=== PATIENT | male | born 1990 | race Caucasian/White ===

== ENCOUNTER 2022-02-07 09:15 | Emergency (ER) | payer SELFPAY ==
[~2022-02-07] VITALS: Ht 177.8 cm; Wt 81.6 kg
--- NOTE | 2022-02-07 09:24 | NUR ---
Dr Strickland at the bedside for MSE.
--- NOTE | 2022-02-07 09:32 | NUR ---
Pt states he wants to talk to health care social worker. Placed a call to Rose, our flat screen worker, ETA 15 min.
[2022-02-07] MEDS ORDERED: NALO4SPR BNOSTRILS ×2 (09:41→09:49)
--- NOTE | 2022-02-07 09:50 | NUR ---
clerical office worker at the bedside speaking w/ pt.
--- NOTE | 2022-02-07 09:58 | NUR ---
Patient given written and verbal discharge instructions. Patient verbalizes understanding of instructions. Pt refused to sign discharge paperwork. Patient is ambulatory with steady gait. Refuses offer of fdc placement. Patient given list of available shelters in surrounding area.
[2022-02-07 10:00] VITALS: BP 140/80
--- NOTE | 2022-02-07 10:01 | NUR ---
Clinical SW Note: SW provided a consult for the pt. Pt is alert and oriented x4. Pt stated, "I want food and water." Pt appears disheveled and unkempt. Pt proceeded to sleep while this screen writer was providing an assessment. Pt accepted SW's referrals though pt refused to sign the homeless waiver form. Pt did not answer SW's follow-up questions and stated once again he just wants food. Pt appeared guarded and appeared to only want to sleep. The nurse provided the pt with a blanket, a sandwich, juices and a clean shirt. SW provided pt with a copy of the [facility] homeless directory which provides information on locations for hot meals, sack lunches, food pantries, and showers. SW provided a list of mental health clinics: [facility] [address] [place] [address], ; [facility] [address] [place] [address], ; [facility] [address] [place] [address], ; a list of medical clinics: [facility] [address] [facility] [address], [place]. [place], ; [facility] [address] [facility] [address] [place] [address]; [facility] [address] [place] [place] [address], ; and a list of substance abuse programs: [facility]stance Abuse Self-helpline ; [facility] ; [facility] ; [facility] ; [facility] ; [facility] [phone]; [facility] [phone]. Patient refused to sign the homeless waiver form and a copy was placed in the chart with the ER nurse signature as well. Pt walked out of the ER with a blanket and refused to take the resources, food, juices and clean shirt. Pt proceeded to ignore staff reminding pt to take his belongings as he walked out.
== END 2022-02-07 10:01 | disposition home or self-care (01) ==
LOC: ER 09:15
DX: F11.20 Opioid dependence, uncomplicated (principal); Z59.02 Unsheltered homelessness; R03.0 Elevated blood-pressure reading, without diagnosis of hypertension
CPT/HCPCS: A4663

== ENCOUNTER 2022-02-07 10:45 | Emergency (ER) | payer SELFPAY ==
[~2022-02-07 10:45] MED LIST: NALO4SPR BNOSTRILS
--- NOTE | 2022-02-07 10:51 | NUR ---
31 YRS OLD MALE ARRIVED W/ RA83 - HAD JUST BEEN SEEN 1 HR AGO - WALKED OUT AFTER SOC SERVICE INTERVIEW; ARRIVED UNCOOPERATIVE USING PROFANITY TO BOTH PARAMEDICS , STAFF AND MD - AGAIN WALKED OUT ON HIS OWN - REFUSING TRIAGE.
== END 2022-02-07 10:50 | disposition left against medical advice (07) ==
LOC: ER 10:45
DX: Z76.89 Persons encountering health services in other specified circumstances (principal); Z59.02 Unsheltered homelessness; Z59.48 Other specified lack of adequate food; F11.20 Opioid dependence, uncomplicated